=== PATIENT | female | born 1975 | race Caucasian/White ===

== ENCOUNTER 2016-09-25 09:07 | Emergency (ER) | payer MEDICAID ==
[~2016-09-25] VITALS: Ht 172.7 cm; Wt 59.0 kg
[2016-09-25 09:17] VITALS: BP_SYST 123
[2016-09-25] MEDS ORDERED: methylPREDNISolone SOD SUCC/PF 62.5 MG/ML VIAL IVP ONE (09:30)
[2016-09-25] MEDS ORDERED: DIPHENHYDRAMINE INJ 50 MG/ML VIAL IVP ONE (09:30)
[2016-09-25 10:18] VITALS: BP_SYST 114
== END 2016-09-25 10:18 | disposition home or self-care (01) ==
LOC: SED 09:07
DX: L50.9 Urticaria, unspecified (principal)
CPT/HCPCS: 96374; 96375; 99284; J1200; J2930

== ENCOUNTER 2020-05-18 14:49 | Emergency (ER) | payer MEDICAID ==
[~2020-05-18] VITALS: Ht 165.1 cm; Wt 59.0 kg
[2020-05-18 14:50] VITALS: BP_SYST 148
[2020-05-18 15:40] VITALS: BP_SYST 148
== END 2020-05-18 15:41 | disposition home or self-care (01) ==
LOC: SED 14:49
DX: U07.1 COVID-19 (principal); J40 Bronchitis, not specified as acute or chronic; J02.9 Acute pharyngitis, unspecified
CPT/HCPCS: 99283; U0003

== ENCOUNTER 2020-06-21 11:20 | Emergency (ER) | payer MEDICAID, SELFPAY ==
[~2020-06-21] VITALS: Ht 167.6 cm; Wt 59.0 kg
[2020-06-21 11:20] VITALS: BP_SYST 137
--- NOTE | 2020-06-21 11:20 | NUR ---
BROUGHT INTO TENT, TRIAGED. WILL ASSUME CARE.
--- NOTE | 2020-06-21 11:30 | NUR ---
PT STATES THAT SHE WAS HERE ON 05/18 AND WAS TESTED FOR COVID, PT STATES SHE TESTED NEGATIVE. PT STATES SYMPTOMS HAVE GOTTEN WORSE AND SHE FEELS HORRIBLE. PT STATES HEADACHES, BODY ACHES, SORE THROAT, COUGHING. PT WITH LOW GRADE FEVER TODAY.
--- NOTE | 2020-06-21 11:45 | NUR ---
COVID TEST DONE, PT TOLERATED IT WELL.
--- NOTE | 2020-06-21 11:50 | NUR ---
Leah montesinos in ED - 06/21/20 at 1240 by [email or web address] SING OUT TO TENT TO EVALUATE PT.
--- NOTE | 2020-06-21 11:50 | NUR ---
DR ANDERSON OUTSIDE TO EVALUATE PT.
[2020-06-21 12:08] VITALS: BP_SYST 137
--- NOTE | 2020-06-21 12:10 | NUR ---
Patient given written and verbal discharge instructions and verbalizes understanding. ER MD discussed with patient the results and treatment provided. Patient in stable condition. ID arm band removed. No Rx given. Patient educated on pain management and to follow up with PMD. Pain Scale 2/10 . Opportunity for questions provided and answered. Medication side effect fact sheet provided.
== END 2020-06-21 12:10 | disposition home or self-care (01) ==
LOC: SED 11:20
DX: U07.1 COVID-19 (principal); F17.200 Nicotine dependence, unspecified, uncomplicated
CPT/HCPCS: 99283; U0003; C9803

== ENCOUNTER 2020-11-10 08:33 | Emergency (ER) | payer MEDICAID, SELFPAY ==
[~2020-11-10] VITALS: Ht 157.5 cm; Wt 59.0 kg
[2020-11-10 08:51] VITALS: BP_SYST 131
[2020-11-10] MEDS ORDERED: HYDROcodone/ACETAMIN 5-325 MG TAB (NORCO/ VICODIN) PO ONE (09:15)
[2020-11-10 11:21] VITALS: BP_SYST 128
== END 2020-11-10 11:19 | disposition home or self-care (01) ==
LOC: SED 08:33
DX: S43.492A Other sprain of left shoulder joint, initial encounter (principal); F17.200 Nicotine dependence, unspecified, uncomplicated; V19.9XXA Pedal cyclist (driver) (passenger) injured in unspecified traffic accident, initial encounter; Y93.89 Activity, other specified; Y92.413 State road as the place of occurrence of the external cause; Y99.8 Other external cause status
CPT/HCPCS: 71045; 73564; 99284

== ENCOUNTER 2021-03-08 12:46 | Emergency (ER) | payer MEDICAID ==
[~2021-03-08] VITALS: Ht 165.1 cm; Wt 58.5 kg
[2021-03-08 13:00] VITALS: BP_SYST 116
--- NOTE | 2021-03-08 13:00 | NUR ---
PT TO REMAIN IN THE ER LOBBY UNTIL ER BED BECOMES AVAILABLE.
--- NOTE | 2021-03-08 13:05 | NUR ---
PT AAO AND AMBULATORY REPORTING SUDDEN ONSET ON BILATERAL LOWER LEG CELLULITIS. PT DENIES ANY ACUTE INJURY JUST THAT THEY ARE RED AND HOT TO TOUCH. V/S STABLE CURRENTLY.
--- NOTE | 2021-03-08 13:12 | NUR ---
DR. CARBONE TO TRIAGE TO EVALUATE PT STATUS.
[2021-03-08] MEDS ORDERED: IBUP-1969 PO (13:21)
[2021-03-08] MEDS ORDERED: CEPH250C PO (13:21)
[2021-03-08] MEDS ORDERED: SULF1TAB47 PO (13:21)
--- NOTE | 2021-03-08 13:30 | NUR ---
Patient given written and verbal discharge instructions and verbalizes understanding. DR. MARIPOSA ROYAL MD discussed with patient the results and treatment provided. Patient in stable condition. ID arm band removed. Rx GIVEN PER MD. Patient educated on pain management and to follow up with PMD. Pain Scale 0/10. Opportunity for questions provided and answered. Medication side effect fact sheet provided.
== END 2021-03-08 13:30 | disposition home or self-care (01) ==
LOC: SED 12:46
DX: L03.116 Cellulitis of left lower limb (principal)
CPT/HCPCS: 99283

== ENCOUNTER 2021-10-25 23:27 | Emergency (ER) | payer MEDICAID ==
[~2021-10-25] VITALS: Ht 165.1 cm; Wt 58.1 kg
[~2021-10-25 23:27] MED LIST: CEPH250C PO; IBUP-1969 PO; SULF1TAB47 PO
[2021-10-25 23:35] VITALS: BP_SYST 135
== END 2021-10-26 00:10 | disposition left against medical advice (07) ==
LOC: SED 23:27
DX: S69.91XA Unspecified injury of right wrist, hand and finger(s), initial encounter (principal); Z53.21 Procedure and treatment not carried out due to patient leaving prior to being seen by health care provider; W23.0XXA Caught, crushed, jammed, or pinched between moving objects, initial encounter; Y93.89 Activity, other specified; Y92.89 Other specified places as the place of occurrence of the external cause; Y99.8 Other external cause status